=== PATIENT | male | born 1950 | race Caucasian/White ===

== ENCOUNTER 2019-11-27 06:20 | Day surgery (SDC) | payer MEDICARE, MEDICAID ==
[~2019-11-27] VITALS: Ht 162.6 cm; Wt 75.5 kg
[~2019-11-27 06:20] MED LIST: SODIUM CHLORIDE 0.9% 1,000 ML ONE
[2019-11-27] MEDS ORDERED: LIDOCAINE 2% 30 ML JELLY TP ONE (06:21)
[2019-11-27] MEDS ORDERED: LIDOCAINE 4% 50 ML SOLUTION TP ONE (06:21)
[2019-11-27] MEDS ORDERED: BENZOCAINE 20% 50 MCG/SPRAY 57 GM TP ONE (06:21)
[2019-11-27] MEDS ORDERED: ALBUTEROL SULFATE 2.5 MG/0.5 ML NEB SOLUTION NEB ONE (06:21)
[2019-11-27] MEDS ORDERED: SODIUM CHLORIDE 0.9% 1,000 ML IV ONE (06:30)
[2019-11-27] MEDS ORDERED: ACET-2123 PO (07:07)
[2019-11-27] MEDS ORDERED: PRED10 PO (07:07)
[2019-11-27] MEDS ORDERED: ALBU8HFA IH (07:07)
[2019-11-27] MEDS ORDERED: LISI-662 PO (07:07)
[2019-11-27] MEDS ORDERED: HYDR-1475 PO (07:07)
[2019-11-27] MEDS ORDERED: FLUT16H NASAL (07:07)
[2019-11-27] MEDS ORDERED: OMEP20 PO (07:07)
[2019-11-27] MEDS ORDERED: MONT4GRA2 PO (07:07)
[2019-11-27] MEDS ORDERED: AMLO5TAB9 PO (07:07)
[2019-11-27] MEDS ORDERED: FentaNYL CITRATE-PF 100 MCG/2 ML VIAL ONE (07:32)
[2019-11-27] MEDS ORDERED: MIDAZOLAM HCL 2 MG/2 ML VIAL ONE (07:32)
[2019-11-27] MEDS ORDERED: MethylPREDNISolone SOD SUCC 125 MG/2 ML VIAL IVP ONE (08:30)
[2019-11-27] MEDS ORDERED: MethylPREDNISolone SOD SUCC 125 MG/2 ML VIAL ONE (08:32)
[2019-11-27] MEDS ORDERED: OXYGEN THERAPY IH SCH (20:00)
== END 2019-11-27 10:30 | disposition home or self-care (01) ==
LOC: SURGERY 06:20
PROVIDERS: ATTEND Internal Medicine Critical Care Medicine
DX: R05 Cough (principal); J98.4 Other disorders of lung; J34.89 Other specified disorders of nose and nasal sinuses; J98.8 Other specified respiratory disorders; J38.4 Edema of larynx; B37.0 Candidal stomatitis; I10 Essential (primary) hypertension; Z87.01 Personal history of pneumonia (recurrent); Z87.891 Personal history of nicotine dependence; Z11.59 Encounter for screening for other viral diseases
CPT/HCPCS: 31623; 31624; 71045; 87015; 87070; 87101; 87205; 87206; 87220; 88108; 88312; J2250; J2930; J3010; J7030; U0003; J7613; Z7610